=== PATIENT | female | born 1955 | race Caucasian/White ===

== ENCOUNTER 2018-04-11 12:17 | Inpatient (IN) | payer SELFPAY ==
[~2018-04-11] VITALS: Ht 180.3 cm; Wt 81.2 kg
[2018-04-11 14:26] LABS: HEMATOCRIT 38.3 % (36.0-46.0); HEMOGLOBIN 12.6 G/DL (11.9-15.5); MCH 29.4 PG (29.0-34.0); MCHC 32.9 G/DL (30.0-36.0); MCV 89.3 FL (83-99); RBC DIS.WIDTH-CV 12.9 % (11.8-14.6); RED BLOOD COUNT 4.29 M/uL (3.80-5.20); WHITE BLOOD COUNT 11.3 K/uL (4.1-10.2)
[2018-04-11 14:37] LABS: CHLORIDE 108 mEq/L (99-109); POTASSIUM 3.9 mEq/L (3.7-5.4); SODIUM 141 mEq/L (136-147)
[2018-04-11 14:39] LABS: GLUCOSE 108 mg/dL (70-99)
[2018-04-11 14:43] LABS: CREATININE 0.7 mg/dL (0.6-1.3); GFR ESTIMATE (CALCULATED) > 59 mL/min/
[2018-04-11 14:44] LABS: UREA NITROGEN (BUN) 7 mg/dL (9-23)
[2018-04-11] MEDS ORDERED: COREG12.5 M1 PO (14:54)
[2018-04-11] MEDS ORDERED: ATORVASTATIN CA20 MG PO (14:54)
[2018-04-11] MEDS ORDERED: CITALOPRAM HBR40 MG PO (14:54)
[2018-04-11] MEDS ORDERED: LEVOTHYROXINE100 MCG PO (14:54)
[2018-04-11] MEDS ORDERED: K-DUR20 MEQ PO (14:54)
[2018-04-11] MEDS ORDERED: VITAMIN D31000 UNI2 PO (14:55)
[2018-04-11] MEDS ORDERED: MULTI VITAMIN1 EACH PO (14:55)
[2018-04-11] MEDS ORDERED: OMEPRAZOLE40 M1 PO (14:55)
[2018-04-11 15:08] LABS: PLAT.SUFFICIENCY ADEQUATE; PLATELET COUNT 190 K/uL (156-360)
[2018-04-11 17:33] LABS: HEMATOCRIT 39.3 % (36.0-46.0); MCH 29.6 PG (29.0-34.0); MCHC 33.1 G/DL (30.0-36.0); MCV 89.5 FL (83-99); PLATELET COUNT 204 K/uL (156-360); RBC DIS.WIDTH-CV 12.8 % (11.8-14.6); RBC DIS.WIDTH-SD 42.1 % (39-53); RED BLOOD COUNT 4.39 M/uL (3.80-5.20); WHITE BLOOD COUNT 14.7 K/uL (4.1-10.2)
[2018-04-11 17:54] VITALS: BP 175/79
[2018-04-11 19:52] VITALS: BP 135/78
[2018-04-11 23:37] VITALS: BP 137/75
[2018-04-12 04:09] VITALS: BP 164/74
[2018-04-12 06:19] LABS: CHLORIDE 108 MEQ/L (99-109); CREATININE 0.6 MG/DL (0.6-1.3); GFR ESTIMATE (CALCULATED) > 59 mL/min/; GLUCOSE 117 mg/dL (70-99); POTASSIUM 3.9 MEQ/L (3.7-5.4); SODIUM 140 MEQ/L (136-147); UREA NITROGEN (BUN) 7 mg/dL (9-23)
[2018-04-12 07:33] VITALS: BP 140/74
[2018-04-12 11:21] VITALS: BP 117/56
[2018-04-12 16:28] VITALS: BP 151/72
[2018-04-12 20:41] VITALS: BP 145/70
[2018-04-12 20:49] VITALS: BP 139/74
[2018-04-13] VITALS (7 sets, daily range): BP systolic 80–152; BP diastolic 48–70
[2018-04-13 06:49] LABS: HEMATOCRIT 32.1 % (36.0-46.0); MCH 28.9 PG (29.0-34.0); MCHC 31.5 G/DL (30.0-36.0); PLATELET COUNT 144 K/uL (156-360); RBC DIS.WIDTH-CV 12.7 % (11.8-14.6); RBC DIS.WIDTH-SD 42.5 % (39-53); WHITE BLOOD COUNT 12.2 K/uL (4.1-10.2)
[2018-04-13 06:51] LABS: HEMOGLOBIN 10.1 G/DL (11.9-15.5); RED BLOOD COUNT 3.49 M/uL (3.80-5.20)
[2018-04-13 07:15] LABS: CHLORIDE 106 MEQ/L (99-109); CREATININE 0.7 MG/DL (0.6-1.3); GFR ESTIMATE (CALCULATED) > 59 mL/min/; GLUCOSE 114 mg/dL (70-99); SODIUM 139 MEQ/L (136-147); UREA NITROGEN (BUN) 8 mg/dL (9-23)
[2018-04-13 07:18] LABS: POTASSIUM 4.8 MEQ/L (3.7-5.4)
[2018-04-13 14:38] LABS: HEMATOCRIT 29.7 % (36.0-46.0); HEMOGLOBIN 9.4 G/DL (11.9-15.5); MCH 29.4 PG (29.0-34.0); MCHC 31.6 G/DL (30.0-36.0); MCV 92.8 FL (83-99); PLATELET COUNT 134 K/uL (156-360); RBC DIS.WIDTH-CV 12.6 % (11.8-14.6); RBC DIS.WIDTH-SD 42.8 % (39-53); WHITE BLOOD COUNT 10.4 K/uL (4.1-10.2)
[2018-04-13 15:07] LABS: CHLORIDE 107 MEQ/L (99-109); CREATININE 0.7 MG/DL (0.6-1.3); GFR ESTIMATE (CALCULATED) > 59 mL/min/; POTASSIUM 3.9 MEQ/L (3.7-5.4); SODIUM 139 MEQ/L (136-147); UREA NITROGEN (BUN) 11 mg/dL (9-23)
[2018-04-13 15:19] LABS: GLUCOSE 176 mg/dL (70-99)
[2018-04-14] VITALS (9 sets, daily range): BP systolic 119–149; BP diastolic 57–70
[2018-04-14 06:12] LABS: HEMATOCRIT 27.4 % (36.0-46.0); HEMOGLOBIN 8.8 G/DL (11.9-15.5); MCH 28.9 PG (29.0-34.0); MCHC 32.1 G/DL (30.0-36.0); MCV 90.1 FL (83-99); PLATELET COUNT 123 K/uL (156-360); RBC DIS.WIDTH-CV 12.5 % (11.8-14.6); RBC DIS.WIDTH-SD 40.9 % (39-53); RED BLOOD COUNT 3.04 M/uL (3.80-5.20); WHITE BLOOD COUNT 10.9 K/uL (4.1-10.2)
[2018-04-14 06:32] LABS: CHLORIDE 108 MEQ/L (99-109); CREATININE 0.6 MG/DL (0.6-1.3); GFR ESTIMATE (CALCULATED) > 59 mL/min/; GLUCOSE 125 mg/dL (70-99); POTASSIUM 4.6 MEQ/L (3.7-5.4); SODIUM 140 MEQ/L (136-147); UREA NITROGEN (BUN) 7 mg/dL (9-23)
[2018-04-14 13:04] LABS: HEMOGLOBIN 9.7 G/DL (11.9-15.5); MCV 90.6 FL (83-99)
[2018-04-15 04:25] VITALS: BP 120/58
[2018-04-15 06:00] LABS: BASOPHIL (%) 0.1 % (0-1); EOSINOPHIL (%) 0 % (0-5); HEMATOCRIT 26.1 % (36.0-46.0); HEMOGLOBIN 8.5 G/DL (11.9-15.5); IMMATURE GRANULOCYTE (%) 0.3 % (0.0-0.7); LYMPHOCYTE (%) 10.2 % (15-42); LYMPHOCYTE COUNT 1.1 K/uL (1.0-2.8); MCH 28.9 PG (29.0-34.0); MCHC 32.6 G/DL (30.0-36.0); MCV 88.8 FL (83-99); MONOCYTE (%) 6.4 % (3-12); MONOCYTE COUNT 0.7 K/uL (0-0.8); NEUTROPHIL COUNT 8.6 K/uL (1.8-6.4); RBC DIS.WIDTH-CV 12.6 % (11.8-14.6); RBC DIS.WIDTH-SD 40.6 % (39-53); RED BLOOD COUNT 2.94 M/uL (3.80-5.20); WHITE BLOOD COUNT 10.3 K/uL (4.1-10.2)
[2018-04-15 06:31] LABS: CHLORIDE 106 MEQ/L (99-109); POTASSIUM 3.8 MEQ/L (3.7-5.4); SODIUM 142 MEQ/L (136-147)
[2018-04-15 06:36] LABS: CREATININE 0.5 MG/DL (0.6-1.3); GFR ESTIMATE (CALCULATED) > 59 mL/min/; GLUCOSE 156 mg/dL (70-99); UREA NITROGEN (BUN) 7 mg/dL (9-23)
[2018-04-15 06:38] LABS: PLAT.SUFFICIENCY DECREASED; PLATELET COUNT 122 K/uL (156-360)
[2018-04-15 07:34] VITALS: BP 125/64
[2018-04-15 11:55] VITALS: BP 152/71
[2018-04-15 16:06] VITALS: BP 115/58
[2018-04-15 19:45] VITALS: BP 135/63
[2018-04-15 23:42] VITALS: BP 114/59
[2018-04-16 04:26] VITALS: BP 137/77
[2018-04-16 06:56] LABS: HEMATOCRIT 24.5 % (36.0-46.0); MCV 89.4 FL (83-99)
[2018-04-16 08:01] VITALS: BP 121/60
[2018-04-16 12:21] VITALS: BP 110/58
[2018-04-16 12:40] LABS: HEMATOCRIT 27.7 % (36.0-46.0); HEMOGLOBIN 8.9 G/DL (11.9-15.5); MCV 89.6 FL (83-99)
[2018-04-16] MEDS ORDERED: TYLENOL REGULA325 MG PO (13:24)
[2018-04-16] MEDS ORDERED: OXYCODONE-APAP1 EACH PO (13:24)
[2018-04-16] MEDS ORDERED: ASPIRIN81 M2 PO (13:29)
== END 2018-04-16 16:05 | disposition home or self-care (01) | DRG 481 ==
LOC: EME 12:17 → 3EAST 14:56 → EDOF 14:56 → ENRESERV 14:58 → 3EAST 17:30
PROVIDERS: Hospitalist; Internal Medicine; Physician Assistant
PROC: 0QS634Z Reposition Right Upper Femur with Internal Fixation Device, Percutaneous Approach (ICD-10-PCS; principal; 2018-04-12)
DX: S72.141A Displaced intertrochanteric fracture of right femur, initial encounter for closed fracture (principal); W01.0XXA Fall on same level from slipping, tripping and stumbling without subsequent striking against object, initial encounter; Y92.013 Bedroom of single-family (private) house as the place of occurrence of the external cause; I95.9 Hypotension, unspecified; E86.0 Dehydration; D62 Acute posthemorrhagic anemia; M62.838 Other muscle spasm; M89.9 Disorder of bone, unspecified; I10 Essential (primary) hypertension; E87.6 Hypokalemia; E03.9 Hypothyroidism, unspecified; K21.9 Gastro-esophageal reflux disease without esophagitis; E78.5 Hyperlipidemia, unspecified; F32.9 Major depressive disorder, single episode, unspecified; F17.210 Nicotine dependence, cigarettes, uncomplicated
CPT/HCPCS: 70450; 71045; 73502; 76000; 80048; 80048 91; 80400; 81003; 82024 90; 82533 91; 83605; 85014; 85018; 85025; 85027; 86850; 86900; 86901; 93005; 94799; 97530 GO; 99281; 99285; C1713; J0330; J0360; J0690; J0834; J1100; J1170; J1650; J2405; J3010; J7030; J7040; J7050; S0020